=== PATIENT | female | born 1985 | race Caucasian/White ===

== ENCOUNTER 2016-05-05 10:12 | Emergency (ER) | payer OTHER ==
[2016-05-05 10:47] VITALS: BP 107/66; PULSE 60; RESP 16; TEMP 98.4; O2SAT 98
[2016-05-05 10:57] LABS: COLOR ORANGE; LEUKOCYTE ESTERASE,URINE 2+ (NEGATIVE); NITRITE,URINE POSITIVE (NEGATIVE)
[2016-05-05 11:07] LABS: BACTERIA 1+ /hpf (NONE SEEN); RBC,URINE >182 /hpf (0-3); WBC,URINE >182 /hpf (0-3); YEAST OCCASIONAL /hpf (NONE SEEN)
--- NOTE | 2016-05-05 12:22 | UCPHY ---
H & P Time Seen by Provider: 05/05/16 11:47 Patient Type: New HPI/ROS: HPI: 30-year-old female presents to urgent care with chief concern urinary burning, frequency, and hematuria that onset suddenly this morning. Reports twinges of symptoms earlier in the week. Denies fever, chills, URI symptoms, shortness of breath, chest pain, abdominal pain, nausea, vomiting, back or flank pain. No aggravating or alleviating factors. No recent antibiotic use. ROS:10 point review of systems is negative other than as stated in HPI Smoking Status: Never smoked Physical Exam: Vital signs stable, reviewed by me HEENT: Unremarkable. Atraumatic. PEERLA/EOMI. Neck: Supple, nontender, no lymphadenopathy Resp: Lungs CTA bilaterally. Breath sounds equal bilaterally. CV: HRR. S1S2. No MRG. ABD: Soft, nontender. Bowel sounds normoactive x 4 quadrants. : No CVA or flank tenderness. Extremities: Full ROM all extremities Neuro: Alert, oriented x 3. No focal deficits. Mental Status: Interactive, appropriate, well-groomed. Constitutional: Initial Vital Signs Temperature (C) 36.9 C 05/05/16 10:45 Heart Rate 60 05/05/16 10:45 Respiratory Rate 16 05/05/16 10:45 Blood Pressure 107/66 05/05/16 10:45 O2 Sat (%) 98 05/05/16 10:45 O2 Delivery Mode Room Air Allergies/Adverse Reactions: No Known Allergies Allergy (Unverified 06/21/14 08:28) Home Medications: Medication Instructions Recorded Vit27&Calcium/Iron/FA 1 tab PO DAILY 06/21/14 [] Cephalexin [Keflex (*)] 500 mg PO BID #14 cap 05/05/16 Medical Decision Making ED Course/Re-evaluation: Urinalysis confirms a UTI with positive nitrates, positive esterase, greater than 182 WBCs. Urine culture pending. Patient placed on twice daily Keflex. She has no fever, no back or flank pain. She is tolerating fluids without difficulty. Differential Diagnosis: Cystitis, pyelonephritis - Data Points Laboratory Results: 05/05/16 10:45 Urine Color ORANGE Urine Appearance CLOUDY Urine pH 7.0 (5.0-7.5) Ur Specific Adams 1.010 (1.002-1.030) Urine Protein TRACE H (NEGATIVE) Urine Ketones NEGATIVE (NEGATIVE) Urine Blood 3+ H (NEGATIVE) Urine Nitrate POSITIVE H (NEGATIVE) Urine Bilirubin NEGATIVE (NEGATIVE) Urine Urobilinogen 1.0 EU (0.2-1.0) Ur Leukocyte Esterase 2+ H (NEGATIVE) Urine RBC >182 H /hpf (0-3) Urine WBC >182 H /hpf (0-3) Ur Epithelial Cells TRACE /lpf (NONE-1+) Urine Bacteria 1+ H /hpf (NONE SEEN) Urine Yeast OCCASIONAL H /hpf (NONE SEEN) Urine Glucose TRACE H (NEGATIVE) Urine Test NEGATIVE Departure - Departure Disposition: Home, Routine, Self-Care Clinical Impression: Urinary tract infection Condition: Good Instructions: Urinary Tract Infection in Women (ED) Additional Instructions: Plan: You have a urinary tract infection. Drink plenty of fluids. Take the Keflex antibiotic twice daily for 1 week. Urostat or Azo-Standard available [id number] as needed for bladder spasm and pain Return if flank pain, fever, nausea or vomiting, or feeling worse. Return if no improvement in symptoms in 48 hours. follow up as directed Prescriptions: Cephalexin [Keflex (*)] 500 mg PO BID #14 cap - PQRS PQRS Measurement: Not applicable
== END 2016-05-05 12:25 | disposition home or self-care (01) ==
LOC: CED 10:12
DX: N39.0 Urinary tract infection, site not specified (principal)
CPT/HCPCS: 81003-PO; 81015-PO; 81025-PO; 99203-PO; G0463-PO